=== PATIENT | female | born 1990 | race Caucasian/White ===

== ENCOUNTER 2017-01-20 16:26 | Emergency (ER) | payer MEDICAID ==
[~2017-01-20] VITALS: Ht 160 cm; Wt 54.9 kg
[~2017-01-20 16:26] MED LIST: AMLO5TAB PO; CARVEDILOL6.25 M1 PO; DOXYCYCLINE100 M1 PO; FERROUS SULFAT325 M2 PO; FLAGYL 500MG.500 MG PO; HYDROCHLOROTH12.5 M1 PO; MOTRIN400 MG PO; NAPROXEN SODIU500 MG PO; NOMEDS XX; NORCO 325 MG-51 TAB PO; PRENATAL VITAMI1 TA3 PO
--- NOTE | 2017-01-20 16:41 | Emergency Room Report ---
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 Clinical Suspician of Infection? Mental Status: Sepsis Risk: Have you (or family members/close friends) recently traveled outside the [place]? If Yes, where/when: Have you had exposure to infectious disease within the past month? TB? Other? Specify: 25 years old white female A0, last menstrual period was 01/08/17. She underwent a positive tests last week. Today she developed vaginal bleeding and lower abdominal cramps. She denies having blood clots. She takes beta blockers for fast heart rate and antibiotics for a dental abscess. Otherwise she has no significant medical history. She does not recall her blood group. Source patient, RN notes reviewed Exam Limitations no limitations ALLERGIES Coded Allergies: No Known Allergies (04/01/15) Home Medications Active Scripts Hydrochlorothiazide (Hydrochlorothiazide 12.5MG) 25 MG PO DAILY #14 CAP Prov: 04/01/15 Reported Medications No Home Medications (NO HOME MEDICATIONS) 1 EACH XX ONCE History Medical History General CAD? No Angina: No DE: No Hypertension? Yes Hyperlipidemia? No CHF? No DVT? No PE? No COPD? No Asthma? No Anemia? No GERD? No Gastric ulcers? No GI Bleed? No Hernia? No Thyroid Problems? No Hypothyroidism? No CVA? No Seizures? No Diabetes? No Insulin Dependent: No Insulin Pump: No Home FSBS? No Renal Insuffiency? No End Stage Renal Disease? No UTI? No Stones? No BPH? No GB Disease: No Nephritic Syndrome? No Asplenia? No Hepatitis? No Sickle Cell Disease? No Arthritis? No Migraines? No Cataracts? No Glaucoma? No MRSA? No HIV? No TB? No Anxiety? No Depression? No Cancer? No More? No Immunization Hx DT/Tetanus 1-4 YRS Flu Refused Pneumonia Refuses Surgical Hx Previous Surgery?N Social History Smoking Hx Packs/day < 1 Pack Alcohol Alcohol: No Review of Systems All Other Systems Reviewed and Negative Constitutional no symptoms reported Eyes no symptoms reported ENT no symptoms reported. Respiratory no symptoms reported Cardiovascular no symptoms reported Gastrointestinal no symptoms reported Genitourinary see HPI (vaginal bleeding), abnormal vaginal bleeding. Musculoskeletal no symptoms reported Skin no symptoms reported Psychiatric/Neurological no symptoms reported Physical Exam Vital Signs Vital Signs Date Time Temp Pulse Resp B/P Pulse O2 O2 Flow FiO2 Ox Delivery Rate 01/20 1755 97.3 83 16 128/77 100 01/20 1640 97.3 83 16 131/72 100 General Appearance normal appearance, WD/WN Eye Exam - bilateral eye normal exam, bilateral eye PERRL, bilateral eye EOMI Ear, Nose, Throat hearing grossly normal, normal ENT inspection Neck normal inspection, non-tender, supple, full range of motion Respiratory Status Yes: trachea midline, chest symmetrical, non tender chest. No: respiratory distress. Lung Sounds bilateral: normal breath sounds, lungs clear. Cardiovascular normal exam, regular rate/rhythm, no peripheral edema, no gallop, no JVD, no murmur, no rub, normal peripheral pulses Gastrointestinal normal bowel sounds, normal exam, soft, no organomegaly, no guarding, no rebound, patient had soft abdomen with suprapubic tenderness, no palpable masses. Back normal inspection, no CVA tenderness, no vertebral tenderness Extremities non-tender, normal range of motion, normal inspection Pelvic normal external exam, normal adnexa, no cerv. motion tender, no masses, vulva and vavital vagina are within normal limitsgina are wnl, she has vulva piercing. cx is firm and closed with blood or products of conception. 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 No Results/Orders Laboratory Tests 01/20/17 1833: Beta HCG, Quant Cancelled 01/20/171747: PT 10.4, INR 0.96, APTT 29.7, WBC 8.9, RBC 4.77, Hgb 14.6, Hct 44.0, MCV 92.1, RDW 11.9, Plt Count 432 H, MPV 7.2 L, Gran % 65.4, Gran # 5.8, Lymphocytes % 24.1, Monocytes % 7.9, Eosinophils % 1.9, Basophils % 0.8, Lymphocytes # 2.2, Monocytes # 0.7, Eosinophils # 0.2, Basophils # 0.1, PUBS MCHC 33.3, MCH 30.7 01/20/17 1740: Sodium 136, Potassium 3.9, Chloride 103, Carbon Dioxide 27, BUN 7, Creatinine 0.5 L, Estimated Creat Clear 150, Estimated GFR (MDRD) 152, Glucose 93, Calcium 8.9, Total Bilirubin 0.5, AST 4 L, ALT 15, Alkaline Phosphatase 69, Total Protein 7.2, Albumin 4.0, Globulin 3.2, Albumin/Globulin Ratio 1.3, Beta HCG, Quant 67754.2, Miscellaneous Test POSITIVE, Urine Color YELLOW, Urine Appearance SL CLOUDY, Urine pH 7.5, Ur Specific [place] 1.010, Urine Protein NEGATIVE, Urine Ketones NEGATIVE, Urine Blood NEGATIVE, Urine Nitrate NEGATIVE, Urine Bilirubin NEGATIVE, Urine Urobilinogen 1.0, Ur Leukocyte Esterase NEGATIVE, Urine WBC OCC, Ur Squamous Epith Cells OCC, Urine Bacteria TRACE, Urine Glucose NEGATIVE Current Medication Orders Sig/[place] Start time Last Medication Dose Route Stop Time Status Admin Sodium Chloride 1,000 ML .[id number] 01/20 164 DC IV 01/20 174 Sodium Chloride 10 ML PRN PRN 01/20 1645 AC IV 01/21 1641 Orders Procedure Date/time Status RH BLOOD TYPE 01/20 1740 Complete URINALYSIS/COMPLETE 01/20 1722 Complete ABO BLOOD TYPE 01/20 1641 Complete PARTIAL THROMBOPLASTIN TIME 01/20 164 Complete PROTHROMBIN TIME 01/20 164 Complete CBC WITH AUTO DIFF 01/20 164 Complete CHEM 12 PROFILE 01/20 164 Complete BETA-HCG, QUANT 01/20 164 Complete Departure Departure Time of Disposition 1859 Disposition DC Home or Self Care(routine) Clinical Impression Primary Impression: Threatened Condition STABLE Referrals Jaswinder FRIEDMAN,Stefan Lin Additional Instructions The patient had no vaginal bleeding during her ED stay. Hormone level was > 26,[address] [place] who recommended that she contact the office in the morning and for a follow-up appointment. She was instructed that if she changes more than 5 pads a day to return. Bed rest no sexual intercourse no vaginal douches Discharge Counseling Counseled pt/family regarding diagnosis, test results, medications/RX, home care, follow up needs ED Critical Care Critical Care No If Critical Care minutes are documented, the time involved in the performance of seperately reportable procedures was not counted toward critical care time documented. I directly delivered medical care to this critically ill and/or injured patient. Timely evaluation and treatment was necessary to address the significant organ system(s) dysfunction present in this patient. at 1901
[2017-01-20 17:40] LABS: URINE BILIRUBIN - DIPSTICK NEGATIVE (NEG); URINE BLOOD NEGATIVE (NEG)
[2017-01-20 17:57] LABS: URINE SQUAMOUS CELLS OCC #/hpf (0-5)
[2017-01-20 18:18] LABS: HEMOGLOBIN 14.6 g/dL (12.2-16.2); LYMPH # 2.2 K/mm3 (0.7-4.5); LYMPH % 24.1 % (10-50.0)
[2017-01-20 18:31] LABS: ABO BLOOD TYPE A; RH BLOOD TYPE POSITIVE
[2017-01-20 19:04] VITALS: BP 128/77
--- OUTSIDE RECORDS SUMMARY | 2017-01-25 21:16 | External Medical Summary Rpt | CCD ---
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 HEALTH N CO T [address]
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
--- OUTSIDE RECORDS SUMMARY | 2017-01-25 21:19 | External Medical Summary Rpt ---
Author Author KRIST[employer] Parker, [employer] Organization [employer] Address Unknown Phone Unavailable
--- OUTSIDE RECORDS SUMMARY | 2017-01-25 21:19 | External Medical Summary Rpt | CCD ---
Author Author , KRIST[employer] MINER Address Unknown Phone [email or web address] Immunization Name Date Rout CVX Reac Dose Comm Prov Is Faci e tion ent ider Refu lity Give sed n Td 07-2 9 999 Hist H112 No H112 (sunil 3-20 oric lt), 04 al Info adso rmat rbed ion - Sour ce Unsp ecif ied MMR 10-2 3 999 Hist H196 No H196 4-19 oric 97 al Info rmat ion - Sour ce Unsp ecif ied Marko 10-2 2 999 Hist H196 No H196 o-OP 4-19 oric V 97 al Info rmat ion - Sour ce Unsp ecif ied DTaP 10-2 107 999 Hist H196 No H196 , UF 4-19 oric 97 al Info rmat ion - Sour ce Unsp ecif ied
--- OUTSIDE RECORDS SUMMARY | 2017-01-25 21:19 | External Medical Summary Rpt | CCD ---
Author Author , KRISTOFER MINER Address Unknown Phone [email or web address] Immunization Name Date Rout CVX Reac Dose [...]
== END 2017-01-20 19:05 | disposition home or self-care (01) ==
LOC: ER 16:26
PROVIDERS: Emergency Medicine
DX: O20.0 Threatened abortion (principal); Z3A.01 Less than 8 weeks gestation of pregnancy

== ENCOUNTER → 2017-01-28 | Outpatient (CLI) | payer MEDICAID ==
[2017-01-28 12:40] LABS: LYMPH # 1.6 K/mm3 (0.7-4.5); LYMPH % 22.4 % (10-50.0)
[2017-01-28 12:50] LABS: HEMOGLOBIN 12.7 g/dL (12.2-16.2)
[2017-01-28 15:50] LABS: ABO BLOOD TYPE A; RH BLOOD TYPE POSITIVE
[2017-01-29 06:42] LABS: HIV Screen 4th Generation wRfx Non Reactive (Non Reactive)
[2017-01-29 08:45] LABS: HBsAg Screen Negative (Negative); Rapid Plasma Reagin, Quant Non Reactive (NonRea<1:1); Rubella Antibodies, IgG 1.34 index (Immune >0.99)
== END ==
LOC: LAB 11:24
PROVIDERS: Nurse Practitioner Obstetrics & Gynecology
DX: Z34.80 Encounter for supervision of other normal pregnancy, unspecified trimester (principal)
CPT/HCPCS: G0432

== ENCOUNTER → 2017-02-04 | Outpatient (CLI) | payer MEDICAID ==
--- NOTE | 2017-02-04 23:27 | RADIOLOGY REPORT PS360 ---
US TRANSVAGINAL PREG HISTORY: OB US FOR DATES evaluate early Patient Age: 26 years: Female Ordering Physician: Stefan San MD TECHNIQUE: Transvaginal pelvic ultrasound COMPARISON :None relevant FINDINGS Single viable intrauterine gestation.. Cardiac activity visualized and documented Amnion and yolk sac identified long closed cervix. Question placenta may be developing posterior. Yolk sac = 0.56 cm CRL = 1.65 cm =8 weeks 1 day heart rate = 178 BPM Average ultrasound age 8 weeks 1 day Gestational age 8 weeks 2 days, based on LMP 12/08/2016. KENNETH based on ultrasound 09/15/2017 Right ovary 3 cm x 2.8 x 2.5 cm . It contains a 1.9 x 1.35 cm cyst. Which mayreflect luteum cyst. Left ovary 2.1 x 1 x 1.4 cm. . No fluid in cul-de-sac IMPRESSION: 1. Single viable intrauterine gestation.. 2.. Average ultrasound age 8 wks 1 day 3. Additionally note of 1.9 cm x 1.35 cm likely corpus luteum cyst right ovary
== END ==
LOC: RAD 13:30
DX: O26.841 Uterine size-date discrepancy, first trimester (principal)

== ENCOUNTER 2017-03-22 07:13 | Day surgery (SDC) | payer MEDICAID ==
--- NOTE | 2017-03-22 08:15 | Operative Note ---
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 Findings: Lesions excised in toto and passed off for pathologic evaluation. 1 mm margin obtained. Procedure Description: After informed consent was obtained, the patient was taken to the procedure room. Her mid upper back was prepped and draped in a sterile fashion. After infiltration with local anesthetic elliptical incisions were made around both lesions. The slightly lateral lesion was the 15 mm lesion and it was excised sharply with 1 mm margin. The margins were marked with suture (long lateral/ short superior). The 5 mm margin was excised in the same manner and passed off for pathologic evaluation. Cautery was utilized to achieve hemostasis and skin was closed with interrupted 4-0 nylon. Dressings were applied. The patient was transferred to recovery in stable condition. EBL (ml): 1 Anesthesia: 1 percent lidocaine Complications: No immediate Specimens: 15 mm pigmented skin lesion along mid upper back (lateral) 5 mm pigmented skin lesion along mid upper back Disposition Disposition: Stable to recovery from where she will be discharged home. She will follow-up in one week. at 0815
[2017-03-22 09:17] VITALS: BP 129/80
== END 2017-03-22 08:11 | disposition home or self-care (01) ==
LOC: SDC 07:13
PROVIDERS: Surgery
PROC: 0HB6XZZ Excision of Back Skin, External Approach (ICD-10-PCS; principal; 2017-03-22 12:00)
DX: D48.5 Neoplasm of uncertain behavior of skin (principal)